=== PATIENT | male | born 2005 | race African-American/Black ===

== ENCOUNTER 2024-06-29 18:26 | Emergency (ER) | payer OTHER ==
[2024-06-29] MEDS ORDERED: Ketorolac Tromethamine 30 MG (1 mL) VIAL ONE (19:13)
== END 2024-06-29 19:51 | disposition home or self-care (01) ==
LOC: CSHERS 18:26
DX: M54.50 Low back pain, unspecified (principal); M43.6 Torticollis; V89.2XXA Person injured in unspecified motor-vehicle accident, traffic, initial encounter
CPT/HCPCS: 96372; 99283; J1885